=== PATIENT | male | born 1945 | race Caucasian/White ===

== ENCOUNTER 2018-11-17 11:36 | Inpatient (IN) | payer OTHER ==
[~2018-11-17] VITALS: Ht 172.7 cm; Wt 75.6 kg
--- NOTE | ~2018-11-17 | HEMODYNAMI ---
PATIENT:JONATHAN LAMA MEDICAL RECORD: [id number] : 43 [address] [id number] ADMISSION DATE: 11/17/18 Generatedon:11/18/201817:02 Patient name: JONATHAN LAMA Patient #: [id number] SSN: : 1945 Date of study: 11/18/2018 Page: Of Hemodynamic Procedure Report Patient Data Patient Demographics Procedure consent was obtained First Name: JONATHAN Gender: Male Last Name: DAINA : 1945 Patient #: [id number] Age: 73 year(s) Race: Unknown Additional ID: [id number] Contact details [address]: [address] [place] [address] State: [place] City: [place] Zip code: [address] Past Medical History Allergies: No known allergies Admission Admission Data Admission Date: 11/17/2018 Admission Time: 17:32 Room #: D.2136 Lab Results Lab Result Date: 11/18/2018 Lab Result Time: 0:00 Biochemistry Name Units Result Min Max BUN mg/dl 15 --(--*-)-- 7 18 Creatinine mg/dl 1.2 --(---*)-- 0.6 1.3 CBC Name Units Result Min Max Hemoglobin g/dl 14.3 --(*---)-- 13.5 17.5 Procedure Procedure Types Cath Procedure Diagnostic Procedure LHC [facility] w/Coronaries Sedation Charges Moderate Sedation up to 15 minutes PCI Procedure Coronary Stent Coronary Stent Initial Procedure Description Procedure Date Procedure Date: 11/18/2018 Procedure Start Time: 16:35 Procedure End Time: 17:01 Procedure Staff Name Function Levar Mcgill MD Performing Physician Layne Meyer RT Monitor John Francisco RT Scrub Madyson Baker RN Nurse Christian Guajardo RT [employer] Procedure Data Cath Procedure Fluoroscopy Diagnostic fluoroscopy Total fluoroscopy Time: 7.1 time: 7.1 min min Diagnostic fluoroscopy Total fluoroscopy dose: 475 dose: 475 mGy mGy Contrast Material Contrast Material Type Amount (ml) Isovue 300 115 Entry Location Entry Primary Successful Side Size Upsize Upsize Entry Closure Boyd ccessful Closure Location (Fr) 1 (Fr) 2 (Fr) Remarks Device Remarks Radial Right 6 Fr Mechanical artery Short Compression Estimated blood loss: 10 ml Diagnostic catheters Device Type Used For End Catheter Placement DIAGNOSTIC [place] 110cm 5 Procedure Fr catheter ([id number]) Procedure Complications No complications Procedure Medications Medication Administration Route Dosage 0.9% NaCl I.V. 100 ml/hr Oxygen etCO2 Nasal cannula 2 l/min Lidocaine 2% added to field 20 Heparin Flush Bag added to field 2 bags (1000units/500ml NS) Radial Cocktail added to field 1 syringe (Verapomil 2mg/Nitro 400mcg/Heparin 1500units) Versed I.V. 2 mg Fentanyl I.V. 50 mcg Versed I.V. 2 mg Heparin Bolus I.V. 5000 units Integrilin (Bolus I.V. 6.8 ml 2mg/ml) Fentanyl I.V. 50 mcg Plavix P.O. 300 mg Hemodynamics Rest HGB: 14.3 (g/dl) Heart Rate: 67 (bpm) Pressure Samples Time Site Value (mmHg) Purpose Heart Use Rate(bpm) 16:38 LV 114/9,15 Snapshot 69 Gradients Valve Time Site Site Mean SEP/DFP Peak To Heart Use 1 2 (mmHg) (sec/min) Peak Rate (mmHg) (bpm) Aortic 16:38 LV AO 90 Snapshots Pre Cath Intra NCS Post Cath Vital Signs Time Heart Resp SPO2 etCO2 NIBP (mmHg) Rhythm Pain Sedation Rate (ipm) (%) (mmHg) Status Level (bpm) 16:06:04 65 20 98 16 176/97(162) NSR 0 (11) 10(A) , No pain 16:10:31 64 16 96 19.5 165/89(150) NSR 0 (11) 10(A) , No pain 16:14:49 67 18 97 20.6 147/94(118) NSR 0 (11) 10(A) , No pain 16:18:59 66 17 96 22 121/92(107) NSR 0 (11) 10(A) , No pain 16:23:09 67 10 98 23.7 138/83(130) NSR 0 (11) 10(A) , No pain 16:27:18 63 12 97 19 140/93(109) NSR 0 (11) 10(A) , No pain 16:31:32 64 14 98 12 145/88(119) NSR 0 (11) 10(A) , No pain 16:35:43 63 25 97 23.2 143/89(112) NSR 0 (11) 10(A) , No pain 16:39:58 71 13 98 23.3 125/77(100) NSR 0 (11) 9(A) , No pain 16:44:14 67 21 96 18 135/73(98) NSR 0 (11) 9(A) , No pain 16:48:32 64 11 98 24.5 120/78(98) NSR 0 (11) 9(A) , No pain 16:53:40 64 22 97 30.8 156/85(127) NSR 0 (11) 9(A) , No pain 16:58:00 62 12 98 15 154/97(125) NSR 0 (11) 10(A) , No pain Medications Time Medication Route Dose Verified Delivered Reason Not es Effectiveness by by 16:09:49 0.9% NaCl I.V. 100 Levar Madyson used for ml/hr Nano Samuel procedure MD BANDA 16:09:56 Oxygen etCO2 2 l/min Levar Rogersa used for Nasal Nano Samuel procedure cannula MD BANDA 16:10:03 Lidocaine 2% added 20ml Levar Cristobal for local [facility] MD CORMIER 16:10:07 Heparin Flush added 2 bags Levar Cristobal used for [facility] to [facility] procedure (1000units/500ml field MD CORMIER NS) 16:10:14 Radial Cocktail added 1 Levar Cristobal used for (Verapomil to syringe Nano Nano procedure 2mg/Nitro field MD CORMIER 400mcg/Heparin 1500units) 16:30:13 Versed I.V. 2 mg Levar Madyson for sedation St Ravin Baker MD, RN 16:30:25 Fentanyl I.V. 50 mcg Levar Madyson for sedation St Ravin Baker MD, RN 16:35:13 Versed I.V. 2 mg Levar Madyson for sedation St Ravin Baker MD, RN 16:35:29 Fentanyl I.V. 50 mcg Levar Madyson for sedation St Ravin Baker MD, RN 16:44:18 Heparin Bolus I.V. 5000 Levar Coughlin for nii ified units [facility] anticoagulation with Dr. MD VERONIKA Campbell 16:44:26 Integrilin I.V. 6.8 ml Levar Coughlin for was alissa (Bolus 2mg/ml) [facility] anticoagulation 3.2mL MD BANDA 16:47:48 Plavix P.O. 300 mg Levar Coughlin for NanoRavin Baker antiplatelet RN therapy Procedure Log Time Note 15:49:27 Signed procedure consent form obtained from patient. 15:49:29 Diagnostic Cath status Elective 15:49:31 Time tracking: Regular hours (M-F 7:00 - 5:00) 15:49:35 Plan of Care:Hemodynamics will remain stable., Cardiac rhythm will remain stable., Comfort level will be maintained., Respiratory function will remain adequate., Patient/ family verbilizes understanding of procedure., Procedure tolerated without complication., Recovers from procedure without complications.. 15:49:48 Patient allergic to No known allergies 15:50:07 Lab Result : BUN 15 mg/dl 15:50:07 Lab Result : Creatinine 1.2 mg/dl 15:50:07 Lab Result : Hemoglobin 14.3 g/dl 15:52:27 Christian Guajardo RT(R) sent for patient. Start room use. 15:54:27 Patient received from 23press II to CCL 3 Alert and oriented. Tansferred to table in Supine position. 15:54:28 Warm blankets applied, and charmaine hugger turned on for patient comfort. 15:54:29 Correct patient and procedure confirmed by team. 15:54:30 ECG and BP/O2 sat monitors applied to patient. 16:04:48 Vital chart was started 16:06:12 Baseline sample Acquired. 16:06:18 Rhythm: sinus rhythm 16:06:19 Full Disclosure recording started 16:06:23 Pre-procedure instructions explained to patient. 16:06:24 Pre-op teaching completed and patient verbalized understanding. 16:06:26 Family in patients room. 16:06:30 Patient NPO since Midnight. 16:06:32 Is patient on blood thinner?No 16:06:36 Patient diabetic? No. 16:06:40 Previous problem with sedation/anesthesia? No ? 16:06:41 Snore? Yes 16:06:42 Sleep apnea? No 16:06:43 Deviated septum? No 16:06:44 Opens mouth fully? Yes 16:06:45 Sticks out tongue? Yes 16:06:52 Airway obstruction? Yes COPD, ASTHMA 16:06:57 Dentures? Yes OUT 16:07:00 Modified Andres's test Ulnar < 7 seconds 16:07:01 Patient pain scale 0/10 ?. 16:07:05 IV patent on arrival in right hand with 0.9% NaCl at [facility]. 16:07:06 Lab results completed and on chart. 16:07:09 Right Radial & Right Groin area was prepped with chlora-prep and draped in sterile fashion 16:07:09 Alarms reviewed by R. N. 16:07:10 Sharps counted by scrub and verified by R.N. 16:07:12 Use device set Radial Dx or PCI 16:07:13 ACIST Syringe (17429) opened to sterile field. 16:07:14 Bag Decanter (2002S) opened to sterile field. 16:07:15 ACIST Hand Control (22115) opened to sterile field. 16:07:15 ACIST Manifold (09552) opened to sterile field. 16:07:16 Tegaderm 4 x 4 (1626W) opened to sterile field. 16:07:18 Medline Cath Pack ([id number]) opened to sterile field. 16:07:19 DIAGNOSTIC WIRE .035 260cm J wire (279514) opened to sterile field. 16:07:19 MBrace Wrist Support ([id number]) opened to sterile field. 16:07:20 SHEATH 6FR Slender (72-5390) opened to sterile field. 16:09:49 0.9% NaCl 100 ml/hr I.V. was administered by Madyson Baker RN; used for procedure; 16:09:56 Oxygen 2 l/min etCO2 Nasal cannula was administered by Madyson Baker RN; used for procedure; 16:10:03 Lidocaine 2% 20ml vial added to field was administered by Levar Mcgill MD; for local anesthetic; 16:10:07 Heparin Flush Bag (1000units/500ml NS) 2 bags added to field was administered by Levar Mcgill MD; used for procedure; 16:10:14 Radial Cocktail (Verapomil 2mg/Nitro 400mcg/Heparin 1500units) 1 syringe added to field was administered by Levar Mcgill MD; used for procedure; 16:29:08 --------ALL STOP TIME OUT------ 16:29:09 Final Timeout: patient, procedure, and site verified with staff and physician. All members of the team are in agreement. 16:29:11 Right Radial & Right Groin site verified by team. 16:29:12 Physical assessment completed. ASA score P 2 - A patient with mild systemic disease as per Levar Mcgill MD. 16:29:15 Sedation plan: IV Moderate Sedation Medication:Versed, Fentanyl 16:30:13 Versed 2 mg I.V. was administered by Madyson Baker RN; for sedation; 16:30:25 Fentanyl 50 mcg I.V. was administered by Madyson Baker RN; for sedation; 16:34:27 Procedure started. 16:35:05 Local anesthetic to right radial artery with Lidocaine 2% by Levar Mcgill MD.INITIAL ACCESS ONLY 16:35:13 Versed 2 mg I.V. was administered by Madyson Baker RN; for sedation; 16:35:29 Fentanyl 50 mcg I.V. was administered by Madyson Baker RN; for sedation; 16:35:55 A 6 Fr Short sheath was inserted into the Right Radial artery 16:36:24 A DIAGNOSTIC [place] 110cm 5 Fr catheter (191038) was advanced over the wire and used for Procedure. 16:37:25 LV gram done using SANDOVAL 16:37:29 Injector settings: Ml/sec: 7, Volume: 15, 16:38:10 LV hemodynamics recorded. 16:38:24 EF : 55 % 16:39:23 LCA angiography performed. 16:40:15 RCA angiography performed. 16:40:17 Catheter exchanged over wire. 16:42:26 GUIDE 6FR EBU 3.5 catheter ([id number]) opened to sterile field. 16:42:27 WHISPER 300cm guide wire ([id number]) opened to sterile field. 16:42:27 INFLATOR Merit BasixCompak (OT2477) opened to sterile field. 16:44:18 Heparin Bolus 5000 units I.V. was administered by Madyson Baker RN; for anticoagulation; verified with Dr. Campbell 16:44:21 6 Fr EBU 3.5 guide catheter was inserted over the wire 16:44:26 Integrilin (Bolus 2mg/ml) 6.8 ml I.V. was administered by Madyson Baker RN; for anticoagulation; wasted 3.2mL 16:45:43 WHISPER 300 wire advanced. 16:46:43 Wire advanced across lesion. 16:47:48 Plavix 300 mg P.O. was administered by Madyson Baker RN; for antiplatelet therapy; 16:47:52 Inflate balloon Inflation number: 1 A EMERGE OTW 3.0 x 30 balloon ([id number]) was prepped and advanced across the Mid LAD, then inflated to 12 JORDANA for 0:15 (min:sec). 16:48:04 Inflation number: 2 The EMERGE OTW 3.0 x 30 balloon ([id number]) was reinflated across the Mid LAD, to 12 JORDANA for 0:15 (min:sec). 16:50:16 Balloon removed over the wire. 16:51:47 Place stent Inflation Number: 3 A INTEGRITY OTW 3.0 X 30 stent ([id number]) was prepped and advanced across the Mid LAD. The stent was deployed at 14 JORDANA for 0:15 (min:sec). 16:53:01 Stent catheter was removed intact over wire. 16:54:39 Place stent Inflation Number: 1 A INTEGRITY OTW 3.0 X 18 stent ([id number]) was prepped and advanced across the Prox LAD. The stent was deployed at 14 JORDANA for 0:15 (min:sec). 16:55:55 Stent catheter was removed intact over wire. 16:55:56 Wire removed. 16:55:56 Guide catheter removed. 16:56:03 TR BAND Standard ([id number]) opened to sterile field. 16:56:11 Procedure ended.(Physican Out) 16:56:16 Sheath removed intact; hemostasis achieved with Mechanical Compression to the Right Radial artery. 16:58:06 Fluoroscopy time 07.10 minutes. 16:58:13 Fluoroscopy dose: 475 mGy 16:58:13 Flurop Dose total: 475 16:58:16 Contrast amount:Isovue 300 115ml. 16:58:20 TR band inflated with 10cc of air. 16:59:27 Post-procedure physical assessment completed. ASA score P 2 - A patient with mild systemic disease as per Levar Mcgill MD. 16:59:33 Post procedure rhythm: sinus rhythm 16:59:36 Estimated blood loss: 10 ml 16:59:37 Post procedure instruction explained to patient.Patient verbalizes understanding. 16:59:37 Patient needs reinforcement of post procedure teaching. 17:00:29 Procedure type changed to Cath procedure, Diagnostic procedure, LHC, LHC w/Coronaries, Sedation Charges, Moderate Sedation up to 15 minutes, PCI procedure, Coronary Stent, Coronary Stent Initial 17:01:13 Procedure and supply charges have been captured, reviewed, submitted and are correct. 17:01:18 Procedure Complication : No complications 17:01:19 Vital chart was stopped 17:01:20 See physician's report for complete and final results. 17:01:22 Report given to PCU. 17:01:24 Patient transfered to PCU with Bed. 17:01:26 Procedure ended. 17:01:26 Full Disclosure recording stopped 17:01:33 End room use (Document Last) Intervention Summary Intervention Notes Time ActionType Lesion and Equipment Action# Pressure Duration Attributes Used 16:47:52 Inflate Mid LAD EMERGE OTW 1 12 00:15 balloon 3.0 x 30 balloon ([id number]) 16:48:04 Reinflate Mid LAD EMERGE OTW 2 12 00:15 balloon 3.0 x 30 balloon ([id number]) 16:51:47 Place stent Mid LAD INTEGRITY 3 14 00:15 OTW 3.0 X 30 stent ([id number]) 16:54:39 Place stent Prox LAD INTEGRITY 1 14 00:15 OTW 3.0 X 18 stent ([id number]) Device Usage Item Name Manufacture Quantity Catalog Number Hospital Part Current Min imal Lot# / Charge Number Stock Stock Serial# Code ACIST Acist 1 28248 481822 371654 297616 20 Syringe Medical (15766) Systems Inc Bag Decanter Microtek 1 2001S 045830 17149 205964 5 () Medical Inc. ACIST Hand Acist 1 63497 319050 382417 369829 5 Control Medical (53247) Systems Inc ACIST Acist 1 14196 749120 801053 076908 5 Manifold Medical (43390) Systems Inc Tegaderm 4 x 3M 1 1626W 593888 607196 566557 5 4 (1626W) Medline Cath Medline 1 [id number] 088625 31926 140959 5 Pack ([id number]) DIAGNOSTIC [facility] Vick 1 563170 891822 281394 352315 30 WIRE .035 260cm J wire (681634) MBrace Wrist Advanced 1 140-0250-00 867015 08422 771098 5 Support Vascular (724593654) Dynamics SHEATH 6FR Terumo 1 [id number] 814870 191846 976699 5 Slender (80-1060) DIAGNOSTIC Terumo 1 40-5013 307220 245408 060059 5 [place] 110cm 5 Fr catheter (737318) GUIDE 6FR Medtronic 1 [id number] 187198 02884 365836 3 EBU 3.5 catheter (OM9UOV31) WHISPER Pineda 1 [id number] 842153 999717 375107 5 300cm guide Vascular wire ([id number]) INFLATOR [facility] 1 OG6214 999287 013086 328232 15 [facility] Medical BasixCompak (CS7669) EMERGE OTW [place] 1 [id number] 463163 100083 096841 5 [id number] 3.0 x 30 Scientific balloon ([id number]) INTEGRITY Medtronic 1 [id number] 752808 328326 501608 1 [id number] OTW 3.0 X 30 stent ([id number]) INTEGRITY Medtronic 1 [id number] 842391 246007 942839 3 [id number] OTW 3.0 X 18 stent ([id number]) TR BAND Terumo 1 [id number] 323520 566308 318430 40 Standard ([id number]) Signature Audit [place] Stage Time Signature Unsigned Intra-Procedure 11/18/2018 Layne Meyer 5:01:47 PM RT(R) Signatures Monitor : Layne Meyer Signature : RT Date : Time : [place] [address] [facility] [place] [address]
[2018-11-17] MEDS ORDERED: METOPROLOL TART25 MG PO (11:44)
[2018-11-17] MEDS ORDERED: COZAAR25 MG PO (11:44)
[2018-11-17 12:27] LABS: BASOPHILS 0.7 % (0-2); EOSINOPHILS 8.3 % (0-7); HEMATOCRIT 44.5 % (42.0-54.0); HEMOGLOBIN 15.8 g/dL (13.5-17.5); IMMATURE GRANULOCYTES 0.1 % (0-5); LYMPHOCYTES 20.7 % (15-50); MCH 31.9 pg (26.0-34.0); MCHC 35.5 g/dL (31.0-37.0); MCV 89.7 fL (80.0-100.0); MEAN PLATELET VOLUME 9.7 fL (7.4-10.4); MONOCYTES 12.2 % (2-11); PLATELET COUNT 211 10x3/uL (130-400); RBC 4.96 10x6/uL (4.20-6.10); RDW 12.8 % (11.5-14.5); WBC 7.1 10x3/uL (4.8-10.8)
[2018-11-17 12:38] LABS: ALBUMIN 3.7 g/dL (3.4-5.0); ALKALINE PHOSPHATASE 58 U/L (46-116); ALT (SGPT) 24 U/L (10-68); BILIRUBIN - TOTAL 0.75 mg/dL (0.2-1.3); CALC OSMOLALITY 281 mosm/kg (275-300); CALCIUM 9.3 mg/dL (8.5-10.1); CARBON DIOXIDE 27.9 mmol/L (21.0-32.0); CHLORIDE - SERUM 105 mmol/L (98-107); CREATININE - SERUM 1.1 mg/dL (0.6-1.3); GLUCOSE 107 mg/dL (74-106); SODIUM 142 mmol/L (136-145); UREA NITROGEN 9 mg/dL (7-18); eGFR NON AFRICAN AMERICAN 69 mL/min (90-120)
[2018-11-17 12:49] LABS: CKMB 1.9 U/L (0.0-3.6); CREATINE KINASE 132 UL (21-232)
[2018-11-17 12:51] LABS: TROPONIN-I < 0.017 ng/mL (0.000-0.060)
[2018-11-17 14:50] LABS: APTT 29.8 SECONDS (22.8-39.4); INR 1.05 (0.85-1.17); PROTIME 13.2 SECONDS (11.6-15.0)
[2018-11-17 14:51] LABS: D-DIMER-QUANTITATIVE 0.36 ug/mLFEU (0.20-0.54)
--- NOTE | 2018-11-17 17:21 | MORECARE ---
CASE MANAGEMENT DISCHARGE SUMMARY PATIENT: JONATHAN LAMA UNIT: [id number] ADM DATE: AGE: 73 : 43 SEX: M ROOM/BED: AUTHOR: KAET BOYER PHYSICIAN: REFERRING PHYSICIAN: DANA PUCKETT MD DATE OF SERVICE: 11/17/18 Discharge Plan Patient Name: JONATHAN LAMA Facility[facility]:[place] : 1945 Planned Disposition: Anticipated Discharge Date: Discharge Date: Expected LOS: 0 Initial Reviewer: [email or web address] Initial Review Date: 11/17/2018 Generated: 11/17/18 6:21 pm Patient Name: JONATHAN LAMA Page 42874 at 1721 All edits/amendments must be made on the electronic document DICTATION DATE: 11/17/181720 LABORER YARD: YECENIA 11/17/181720 RPT#: [id number] DC DATE: STATUS: REG ER [facility] [address] [place] [address] END OF REPORT
[2018-11-17 17:44] VITALS: BP 222/112
--- NOTE | 2018-11-17 18:14 | NUR ---
PT ARRIVED FROM ER VERY HYPERTENSIVE AT 222/112 AFTER CHECKING MANUALLY GOT A NEW READING OF 196/90. PT HAS A PRN APRESOLINE ORDER FOR SBP >170. INGRID RN AT BEDSIDE ASSISTING AND PUSHED MEDICATION ORDERED. ADMISSION WORKUP IN PROCESS WILL STABLIZE PT FIRST. PT DENIES ANY INDIFFERENT FEELINGS AND STATES HE IS JUST HUNGRY. WILL GET A TRAY ORDERED AND CPOC.
--- NOTE | 2018-11-17 18:48 | NUR ---
RECHECKED MANUAL BP AND IT WAS 174/86. WILL RECHECK IN AN HOUR. WILL CTM.
--- NOTE | 2018-11-17 20:30 | NUR ---
BP 140/75 VIA PHUC CUFF
[2018-11-17 20:41] VITALS: BP 148/78
[2018-11-17 23:06] VITALS: BP 148/78; Ht 172.7 cm; Wt 75.6 kg
[2018-11-18] VITALS: BP 84/47
[2018-11-18 04:55] VITALS: BP 120/71
[2018-11-18 06:40] LABS: ALBUMIN 3.2 g/dL (3.4-5.0); ALKALINE PHOSPHATASE 43 U/L (46-116); ALT (SGPT) 21 U/L (10-68); BILIRUBIN - TOTAL 0.56 mg/dL (0.2-1.3); CALCIUM 8.9 mg/dL (8.5-10.1); CARBON DIOXIDE 25.5 mmol/L (21.0-32.0); CHLORIDE - SERUM 108 mmol/L (98-107); CHOL - HDL RATIO 3.8 ratio (2.3-4.9); CHOLESTEROL, TOTAL 159 mg/dL (0-200); CREATININE - SERUM 1.2 mg/dL (0.6-1.3); GLUCOSE 106 mg/dL (74-106); HDL CHOLESTEROL 42 mg/dL (32-96); LDL CHOLESTEROL 93 mg/dL (0-100); LDL-HDL RATIO 2.2 ratio (1.5-3.5); POTASSIUM - SERUM 3.5 mmol/L (3.5-5.1); SODIUM 144 mmol/L (136-145); THYROID STIMULATING HORMONE 0.99 uIU/mL (0.36-3.74); TRIGLYCERIDE 123 mg/dL (30-200); TROPONIN-I < 0.017 ng/mL (0.000-0.060); eGFR NON AFRICAN AMERICAN 63 mL/min (90-120)
[2018-11-18 06:56] LABS: CALC OSMOLALITY 287 mosm/kg (275-300); UREA NITROGEN 15 mg/dL (7-18)
[2018-11-18 08:21] LABS: BASOPHILS 0.7 % (0-2); HEMATOCRIT 41.4 % (42.0-54.0); HEMOGLOBIN 14.3 g/dL (13.5-17.5); IMMATURE GRANULOCYTES 0.2 % (0-5); LYMPHOCYTES 13.8 % (15-50); MCH 31.3 pg (26.0-34.0); MCHC 34.5 g/dL (31.0-37.0); MCV 90.6 fL (80.0-100.0); MEAN PLATELET VOLUME 10.2 fL (7.4-10.4); MONOCYTES 13.7 % (2-11); NEUTROPHILS 64.6 % (40-80); PLATELET COUNT 226 10x3/uL (130-400); RBC 4.57 10x6/uL (4.20-6.10); RDW 13.1 % (11.5-14.5); WBC 8.3 10x3/uL (4.8-10.8)
[2018-11-18 08:23] VITALS: BP 131/64
--- NOTE | 2018-11-18 09:14 | NUR ---
CONSENTS OBTAINED FOR HEARTCATH, PT VERBALIZES UNDERSTANDING OF PROCEDURE. I CALLED FAMILY FRIEND OF PT PER HIS REQUEST AND SHE SAID SHE WILL TRY TO BE HERE FOR THE PROCEDURE. CALL LIGHT IN REACH, WILL CONTINUE TO MONITOR.
--- NOTE | 2018-11-18 10:36 | NUR ---
NO NEEDS VOICED AT THIS TIME. CALL LIGHT IN REACH. WILL MONITOR.
[2018-11-18 12:42] VITALS: BP 145/70
[2018-11-18 15:30] VITALS: BP 171/60
--- NOTE | 2018-11-18 19:20 | NUR ---
RESUMING CARE. PT LAYING IN BED A&O O2 ON 2L, IV TO RT HAND, TR BAND TO RT WRIST, NYTRO TO RT CHEST NO C/O OF PAIN OR DISTRESS AT THIS TIME CALL LIGTH IN REACH WILL CONT TO MONITOR
--- NOTE | 2018-11-18 19:55 | NUR ---
PULLED OUT 3CC OF AIR FROM TR BAND NO ACTIVE BLEEDING
[2018-11-18 20:00] VITALS: BP 157/78
--- NOTE | 2018-11-18 20:47 | NUR ---
PULLED 3CC OF AIR FROM TR BAND NO BLEEDING NOTED
--- NOTE | 2018-11-18 21:30 | NUR ---
PULL 4CC OF AIR FROM TR BAND , TR BAND REMOVED NO ACTIVE BLEEDING
[2018-11-19] VITALS: BP 131/65
--- NOTE | 2018-11-19 03:01 | NUR ---
LYING IN BED, CALL LIGHT IN REACH. WILL CONTINUE WITH PLAN OF CARE. 77 SR ON TELEMETRY
[2018-11-19 08:14] VITALS: BP 147/75
--- NOTE | 2018-11-19 08:35 | NUR ---
0715-ROUNDING DONE WITH PATIENT UP IN ROOM, COMING FROM RESTROOM. TR BAND SEEN TO RIGHT WRIST AREA. NO BLLEDING SEEN TO DRESSING. ON HEART MONITOR SHOWING SR, HR 72. ON 2L PER NC. RIGHT HAND PIV SEEN WITH SALINE LOCK. DENIES ANY PAIN AT THIS TIME. WILL MONITOR.
--- NOTE | 2018-11-19 10:52 | NUR ---
COMPLAINTS OF HEADACHE 12/05. TYLENOL GIVEN.
[2018-11-19] MEDS ORDERED: HCTZ25 MG PO (11:20)
[2018-11-19] MEDS ORDERED: PLAVIX75 MG PO (11:22)
[2018-11-19 11:41] VITALS: BP 166/72
[2018-11-19] MEDS ORDERED: SYMBICORT 16010.2 GM INH (12:20)
[2018-11-19] MEDS ORDERED: PREDNISONE10 MG PO (12:20)
--- NOTE | 2018-11-19 14:23 | NUR ---
VERBAL AND WRITTEN DISCHARGE INSTRUCTIONS GIVEN TO PATIENT AND . SALINE LOCK REMOVED WITH CATH TIP INTACT. ON ROOM AIR X 45 MIN AND O2 SAT STAYS AT 96%. DISCHARGED HOME VIA WHEELCHAIR.
--- NOTE | 2018-11-19 16:46 | MORECARE ---
CASE MANAGEMENT DISCHARGE SUMMARY PATIENT: JONATHAN LAMA UNIT: [id number] ADM DATE: 11/17/18 AGE: 73 : 44 SEX: M ROOM/BED: D.2136 AUTHOR: KATE BOYER PHYSICIAN: REFERRING PHYSICIAN: LUL MCKEON DO DATE OF SERVICE: 11/19/18 Discharge Plan Patient Name: [facility]ATHAN LAMA [facility] [facility] 1945 Planned Disposition: Home Anticipated Discharge Date: 11/19/18 Discharge Date: 11/19/2018 Expected LOS: 2 Initial Reviewer: [email or web address] Initial Review Date: 11/17/2018 Generated: 11/19/18 5:46 pm Last DP export: 11/17/18 4:21 p Patient Name: JONATHAN LAMA Page [id number] at 1646 All edits/amendments must be made on the electronic document DICTATION DATE: 11/19/181644 WEB SIZER: YECENIA 11/19/181644 RPT#: [id number] DC DATE:11/19/18 STATUS: DIS IN [facility] [address] [place] [address] END OF REPORT
--- NOTE | 2018-11-19 16:56 | MORECARE ---
CASE MANAGEMENT DISCHARGE SUMMARY PATIENT: JONATHAN LAMA UNIT: [id number] ADM DATE: 11/17/18 AGE: 73 : 43 SEX: M ROOM/BED: D.2136 AUTHOR: MERLIN,DOC PHYSICIAN: REFERRING PHYSICIAN: LUL MCKEON DO DATE OF SERVICE: 11/19/18 Discharge Plan Patient Name: JONATHAN LAMA Facility: [facility]:[place] : 1945 Planned Disposition: Home Anticipated Discharge Date: 11/19/18 Discharge Date: 11/19/2018 Expected LOS: 2 Initial Reviewer: [email or web address] Initial Review Date: 11/17/2018 Generated: 11/19/18 5:55 pm Comments DCP- Discharge Planning Updated by [email or web address]: Cole Foss on 11/19/18 3:[address] Patient Name: JONATHAN LAMA Encounter No: [id number] : 1945 Primary Insurance: [employer] ADMINISTRATION Anticipated DC Date: 11-19-2018 Planned Disposition: Home DCP follow-up note: CM MET WITH PT IN ROOM TO DISCUSS DISCHARGE PLANNING AND NEEDS. PT REPORTS LIVING AT HOME INDEPENDENTLY WITH HIS SISTER IN LAW. PT HAS NO MEDICAL EQUIPMENT AND NO OUTSIDE SERVICES ASSISTING IN THE HOME. CM DISCUSSED AVAILABILITY OF HOME HEALTH, REHAB SERVICES AND MEDICAL EQUIPMENT. PT DENIES DISCHARGE NEEDS, REPORTS HIS SISTER IN LAW WILL PICK HER UP FOR DISCHARGE HOME TODAY. PT ASKED THAT CM FAX HIS INFORMATION TO [facility] FOR HIS MEDICAL FOLLOW UP. CM FAXED DISCHARGE INFORMATION TO [facility], . CM CALLED AND NOTIFIED LORENZO JACQUES OF PT'S DISCHARGE AND REMOVED PT FROM TRANSFER LIST, . BUSINESS INFORMATION CONSULTANT NURSE NOTIFIED. COLE FOSS, CASE MANAGEMENT DCPIA - Discharge Planning Initial Assessment Updated by [email or web address]: Cole Foss on 11/19/18 4:46 pm * Is the patient Alert and Oriented? Yes * How many steps to enter\exit or inside your home? * PCP DR[facility] PINEDA, [facility] * [facility] * Preadmission Environment Home with Family * ADLs Independent * Equipment None * Other Equipment [facility] - MEDICAL EQUIPMENT PROVIDER PREFERENCE * List name and contact numbers for known caregivers / representatives who currently or will assist patient after discharge: MAMI AMEZCUA, , * Verbal permission to speak to the caregivers and representatives has been obtained from the patient. N/A * Community resources currently utilized PA Services * Please name any agencies selected above. NONE * Additional services required to return to the preadmission environment? No * Can the patient safely return to the preadmission environment? Yes * Has this patient been hospitalized within the prior 30 days at any hospital? No External Providers External Provider: OTHER-OTHER Next Contact Date: 11/19/2018 Service Request Date: Service Type: Resolution: Reviewer: Comments: Last DP export: 11/19/18 3:46 p Patient Name: JONATHAN LAMA Page 60837 at 1656 All edits/amendments must be made on the electronic document DICTATION DATE: 11/19/181654 ATG ARCHITECT: YECENIA 11/19/181654 RPT#: [id number] DC DATE:11/19/18 STATUS: DIS IN [facility] [address] [place] [address] END OF REPORT
--- NOTE | 2018-11-27 12:54 | CN ---
PATIENT NAME:JONATHAN LAMA MEDICAL RECORD: [id number] : 43 LOCATION:D. D.2136 ADMIT DATE: 11/17/18 ACCOUNT: [id number] CONSULTING PHYSICIAN: HUNTER BURNS MD REFERRING PHYSICIAN: LUL MCKEON DO DATE OF CONSULTATION: 11/18/2018 HISTORY OF PRESENT ILLNESS: A 73-year-old gentleman has a history of coronary artery disease, had undergone angiography years ago at the [facility], not in need of stent. He over the past week has been having increasing chest pain, dyspnea on exertion, shortness of breath. Found to be markedly hypertensive. Admitted with hypertensive urgency. Pain is improving. His blood pressure has trended down. Initial cardiac enzymes are negative. EKG significant for LVH. We are asked to see him concerning his cardiovascular status. PAST MEDICAL HISTORY: Includes; 1. History of coronary artery disease. 2. Cerebrovascular disease. 3. Obstructive pulmonary disease. MEDICATIONS: Include metoprolol 25 b.i.d., losartan 25 every day. ALLERGIES: None known. SOCIAL HISTORY: He is a nonsmoker and nondrinker. Easily able to take care of all his ADLs. REVIEW OF SYSTEMS: The patient reports easy bruising but reports no swollen glands. The patient reports no fever, no night sweats, no significant weight gain, no significant weight loss. No significant exercise tolerance. The patient reports no dry eyes, no irritation, no vision change. Patient reports no difficulty hearing and no ear pain. Patient reports no frequent nose bleeds or nose and sinus problems. Patient reports on arm pain on exertion. No shortness of breath while lying down. No history of heart murmur. Patient reports no cough, no wheezing or coughing up blood. Patient reports no abdominal pain, no vomiting. Normal appetite. No diarrhea and not vomiting blood. No nausea and no constipation. Patient reports no incontinence. No difficulty urinating. No hematuria. No increased frequency. Patient reports no muscle aches. No weakness, no arthralgias, no back pain. No swelling of the extremities. Patient reports no abnormal mole, no jaundice, no rashes. Reports no loss of consciousness. No weakness and no numbness. No seizures, dizziness, or headaches. The patient reports no depression, no sleep disturbance, feeling safe in a relationship and no alcohol abuse. Patient reports on fatigue. Reports no runny nose or sinus pressure. No itching, no hives, and no frequent sneezing. PHYSICAL EXAMINATION: GENERAL: Pleasant gentleman, no acute distress, appears stated age. VITAL SIGNS: Blood pressure 120/71, pulse 60 and regular currently. HEENT: Normocephalic, atraumatic. NECK: No JVD or bruit. HEART: Regular. S4 gallop is noted. LUNGS: Few expiratory wheezes. ABDOMEN: Soft, nontender. EXTREMITIES: Pulses well preserved, 2+ with no edema. CONSULT REPORT [id number] JONATHAN LAMA DIAGNOSTIC DATA: ECG shows LVH. IMPRESSION: Acute coronary syndrome, known underlying coronary artery disease worrisome for progression of disease. PLAN: Plan for angiography, intervention based on above. TRANSINT:[id number] Voice Confirmation ID: [id number] DOCUMENT ID: [id number] HUNTER BURNS MD at 1254 CC: [id number] DICTATION DATE: 11/18/18821 SPORTS MEDICINE SPECIALIST: 11/18/18 0855 DIS IN 11/19/18 [id number] [place] [address]
--- NOTE | 2018-11-27 12:54 | OP ---
PATIENT NAME: JONATHAN LAMA MEDICAL RECORD: [id number] :43 LOCATION:D.M2 D.2136 ADMISSION DATE:11/17/18 SURGEON: UHNTER BURNS MD DATE OF OPERATION: 11/18/2018 PROCEDURE: Left heart catheterization, selective coronary angiography, right radial approach. CATHETERS: Radial sheath, [place] catheter. The procedure was well tolerated and the patient was returned to ledezma, sheath removed. Proceeded immediately to PTCA stenting of the LAD. FINDINGS: Left ventriculography in 30-degree SANDOVAL view: Normal wall motion and normal systolic function. CORONARY ANATOMY: LEFT MAIN: Left main is free of disease. LAD: Has multiple sequential stenosis of 90%. CIRCUMFLEX: Left dominant system, free of disease. RIGHT CORONARY ARTERY: Rudimentary. PLAN: Intervention of LAD momentarily. DESCRIPTION OF PROCEDURE: A 5-[place] sheath was exchanged for using indwelling radial sheath. A Whisper wire was placed across the tightly occluded. Multiple areas of stenosis in the LAD down this portion of vessel. Pre-deployment balloon was a 3.0 x 30 [place] up to 10 atmospheres. Stents deployed were 3.O x 30 and 3.0 x 18, both are nondrug-eluting up to 14 atmospheres. Final angiography shows excellent resolution, no significant residual. ELODIA flow was 3 throughout the procedure. Sheath was closed with TR band. TRANSINT:[id number] Voice Confirmation ID: [id number] DOCUMENT ID: [id number] HUNTER BURNS MD at 1254 CC: [id number] DICTATION DATE: 11/18/18 170 MAGISTRATE ASSISTANT: 11/19/18 0012 DIS IN 11/19/18 [facility] [address] [place] [address]
== END 2018-11-19 14:24 | disposition home or self-care (01) | DRG 249 ==
LOC: D.ER 11:36 → D.M2 17:32 → D.EDHOLD 17:32 → D.M2 17:52
PROVIDERS: Family Medicine; Internal Medicine Interventional Cardiology; ADMIT Family Medicine
PROC: B2111ZZ Fluoroscopy of Multiple Coronary Arteries using Low Osmolar Contrast (ICD-10-PCS; 2018-11-18)
PROC: B2151ZZ Fluoroscopy of Left Heart using Low Osmolar Contrast (ICD-10-PCS; 2018-11-18)
PROC: 02703EZ Dilation of Coronary Artery, One Artery with Two Intraluminal Devices, Percutaneous Approach (ICD-10-PCS; principal; 2018-11-18 16:00)
PROC: 4A023N7 Measurement of Cardiac Sampling and Pressure, Left Heart, Percutaneous Approach (ICD-10-PCS; 2018-11-18 16:00)
DX: I25.110 Atherosclerotic heart disease of native coronary artery with unstable angina pectoris (principal); G45.9 Transient cerebral ischemic attack, unspecified; K44.9 Diaphragmatic hernia without obstruction or gangrene; J44.9 Chronic obstructive pulmonary disease, unspecified; I10 Essential (primary) hypertension; M19.90 Unspecified osteoarthritis, unspecified site